=== PATIENT | female | born 1965 | race Caucasian/White ===

== ENCOUNTER 2016-10-16 20:12 | Emergency (ER) | payer MEDICAID ==
[~2016-10-16] VITALS: Ht 152.4 cm; Wt 69.0 kg
[~2016-10-16 20:12] MED LIST: CYCL-319 PO; HYDR-3498 PO; NAPR-260 PO
[2016-10-16 20:25] VITALS: Ht 152.4 cm; Wt 69.0 kg
--- NOTE | 2016-10-16 21:25 | ERA ---
ER Documentation Chief Complaint Date/Time DATE: 10/16/16 TIME: 21:25 Chief Complaint left knee injury with visible deformities HPI The patient is a 51-year-old female, presenting to the ER because of left knee pain after she had a mechanical fall around 6:30 PM. The pain is 10/10, worse with movement. She denies any other injury, denies headache, neck pain, chest pain, abdominal pain, vomiting, dysuria, diarrhea. Last meal was 6:30 PM. She does not smoke or drink Past medical history: Diabetes mellitus, dyslipidemia Past surgical history: None ROS All systems reviewed and are negative except as per history of present illness. Medications Home Meds Active Scripts Hydrocodone/Acetaminophen (Bernard 10-325 Tablet) 1 Each Tablet, 1 TAB PO Q6H Y for PAIN, #7 TAB Prov:JONNY ALMAGUER MD 10/17/16 Ibuprofen* (Motrin*) 600 Mg Tab, 600 MG PO Q6H Y for PAIN AND OR ELEVATED TEMP, #30 TAB Prov:JONNY ALMAGUER MD 10/17/16 Cyclobenzaprine Hcl* (Cyclobenzaprine Hcl*) 10 Mg Tablet, 10 MG PO TID, #15 TAB Prov:JAQUELINE FRASER PA-C 02/22/16 Naproxen* (Naprosyn*) 500 Mg Tablet, 500 MG PO BID Y for PAIN AND/OR INFLAMMATION, #30 TAB Prov:JAQUELINE FRASER PA-C 02/22/16 Hydrocodone Bit-Acetaminophen* (Bernard*) 5-325 Mg Tab, 1 TAB PO Q6 Y for PAIN, # 7 TAB Prov:JAQUELINE FRASER PA-C 02/22/16 Allergies Allergies: Coded Allergies: No Known Drug Allergies (Verified Allergy, Unknown, 04/13/08) PMhx/Soc History of Surgery: No Anesthesia Reaction: No Hx Neurological Disorder: No Hx Respiratory Disorders: No Hx Cardiac Disorders: No Hx Psychiatric Problems: No Hx Miscellaneous Medical Probl: Yes (DM, HIGH CHOLESTEROL ) Hx Alcohol Use: No Hx Substance Use: No Hx Tobacco Use: No Smoking Status: Never smoker Physical Exam Vitals Vital Signs Date Time Temp Pulse Resp B/P Pulse Ox O2 Delivery O2 Flow Rate FiO2 10/16/16 23:01 81 20 121/58 98 Room Air 10/16/16 22:00 101 23 142/73 98 Room Air 10/16/16 21:00 89 16 127/74 97 Room Air 10/16/16 20:50 89 15 140/74 97 Room Air 10/16/16 20:25 98.5 86 20 150/70 98 Physical Exam Const: No acute distress. Head: Atraumatic. Eyes: Normal Conjunctiva. ENT: Normal External Ears, Nose and Mouth. Neck: Full range of motion. No meningismus. Resp: Clear to auscultation bilaterally. Cardio: Regular rate and rhythm, no murmurs. Abd: Soft, non distended, normal bowel sounds, non tender. Skin: No petechiae or rashes. Back: No midline or flank tenderness. Ext: Left knee with patella tenderness, edema, ecchymosis, no laceration, no calf tenderness. Palpable posterior tibialis and pedal dorsalis Neur: Awake and alert. No focal deficit Psych: Normal Mood and Affect. Result Diagram: 10/16/16 2100 10/16/16 2100 Results 24 hrs Laboratory Tests Test 10/16/16 21:00 10/16/16 23:51 White Blood Count 8.410^3/ul Red Blood Count 5.1410^6/ul Hemoglobin 14.8g/dl Hematocrit 43.7% Mean Corpuscular Volume 85.0fl Mean Corpuscular Hemoglobin 28.8pg Mean Corpuscular Hemoglobin Concent 33.9g/dl Red Cell Distribution Width 12.6% Platelet Count 10486^3/UL Mean Platelet Volume 11.6fl Neutrophils % 74.1% Lymphocytes % 18.2% Monocytes % 5.7% Eosinophils % 1.1% Basophils % 0.2% Nucleated Red Blood Cells % 0.0/100WBC Neutrophils # 6.210^3/ul Lymphocytes # 1.510^3/ul Monocytes # 0.510^3/ul Eosinophils # 0.110^3/ul Basophils # 0.010^3/ul Nucleated Red Blood Cells # 0.010^3/ul Prothrombin Time 12.1Sec Prothrombin Time Ratio 0.9 INR International Normalized Ratio 0.90 Activated Partial Thromboplast Time 29.0Sec Sodium Level 136mmol/L Potassium Level 4.2mmol/L Chloride Level 96mmol/L Carbon Dioxide Level 27mmol/L Anion Gap 17 Blood Urea Nitrogen 14mg/dl Creatinine 0.39mg/dl Glucose Level 418mg/dl Calcium Level 9.6mg/dl Bedside Glucose 349mg/dL Current Medications Medications (Trade) Dose Ordered Sig/Ervin Route PRN Reason Start Time Stop Time Status Last Admin Dose Admin Morphine Sulfate (morphine) 4 mg ONCE STAT IV 10/16/16 21:37 10/16/16 21:40 DC 10/16/16 21:47 Ondansetron HCl 4 mg 4 mg ONCE STAT IV 10/16/16 21:37 10/16/16 21:40 DC 10/16/16 21:47 Sodium Chloride 1,000 ml @ 1,000 mls/hr Q1H ONCE IV 10/16/16 22:00 10/16/16 22:59 DC 10/16/16 21:48 Sodium Chloride (NS) 1,000 ml @ 1,000 mls/hr Q1H ONCE IV 10/16/16 23:00 10/16/16 23:59 DC 10/16/16 23:51 Insulin Human Lispro (Humalog) 10 unit ONCE ONCE SC 10/16/16 22:36 10/16/16 23:00 DC Procedures/[place] [id number] Radiology Main Line: [phone] DIAGNOSTIC IMAGING REPORT Patient: BERYL TORRE : 1965 Age: 51 Sex: F MR #: [id number] DOS: 10/16/16 2137 Ordering MD: JONNY ALMAGUER MD Location: [facility] Room/Bed: PROCEDURE: LEFT KNEE - 3 VIEWS CLINICAL INDICATION: 51-year-old female with left-sided knee pain. TECHNIQUE: AP, cross-table lateral and oblique view of the left knee were obtained. The images reviewed on a PACS workstation. COMPARISON: None. FINDINGS: There is a transverse mid patellar fracture with displacement of approximately 13 mm. There is prepatellar soft tissue swelling. There is a joint effusion identified. There is no evidence for dislocation. The bone marrow mineralization is within normal limits. IMPRESSION: Transverse displaced mid patellar fracture. .Jefferson Maria MD, MD Date Time Electronically viewed and signed by .Jefferson Maria MD, MD on 10/17/2016 00:13 .M/ CC: JONNY ALMAGUER MD MEDICAL MAKING DECISION: The patient is a 51-year-old female, presenting with acute left patella fracture, acute diabetic hyperglycemia. She was treated with morphine 4 mg IV for pain, Zofran 4 mg IV for nausea, 2 L normal saline, 10 units of Humalog subcutaneously for acute diabetic hyperglycemia with good response. She was treated with left knee immobilizer and crutches. Post immobilizer neurovascular is intact The differential diagnoses considered include but are not limited to fracture, internal derangement, HHS, DKA, medical noncompliance, dehydration Departure Diagnosis: Primary Impression: Patellar sleeve fracture of left knee Additional Impression: Diabetes mellitus with hyperglycemia Condition: Good Comments She was discharged with Motrin, Bernard I discussed the findings with the patient. I advised the patient to follow-up with the on-call orthopedist Dr Hodge in about 1-2 days, sooner if needed and return if any concern. The patient's blood pressure was elevated (>120/80) but appears stable without evidence of hypertension emergency or urgency. The patient was counseled about the risks of hypertension and urged to pursue outpatient monitoring and therapy within a week with their primary care physician. JONNY ALMAGUER MD Oct 16, 2016 21:25
[2016-10-16] MEDS ORDERED: morphine 4 MG/ML VIAL IV STA (21:37)
[2016-10-16] MEDS ORDERED: ONDANSETRON 4 MG INJ IV STA (21:37)
[2016-10-16] MEDS ORDERED: SOD CHLORIDE 0.9% 1,000 ML IV ONE ×2 (22:00→23:00)
[2016-10-16 22:08] LABS: ADD SCAN DIFF NO
[2016-10-16 22:10] LABS: BASOPHILS % 0.2 % (0.0-2.0); EOSINOPHILS # 0.1 10^3/ul (0.0-0.5); EOSINOPHILS % 1.1 % (0.0-7.0); HEMATOCRIT 43.7 % (37.0-47.0); HEMOGLOBIN 14.8 g/dl (12.0-16.0); LYMPHOCYTES # 1.5 10^3/ul (0.8-2.9); LYMPHOCYTES % 18.2 % (15.0-51.0); MEAN CORPUSCULAR HEMOGLOBIN 28.8 pg (29.0-33.0); MEAN CORPUSCULAR HGB CONC 33.9 g/dl (32.0-37.0); MEAN PLATELET VOLUME 11.6 fl (7.4-10.4); MONOCYTE # 0.5 10^3/ul (0.3-0.9); MONOCYTES % 5.7 % (0.0-11.0); NEUTROPHIL # 6.2 10^3/ul (1.6-7.5); NEUTROPHILS % 74.1 % (39.0-77.0); PLATELET COUNT 231 10^3/UL (140-415); RED BLOOD COUNT 5.14 10^6/ul (4.20-5.40); RED CELL DISTRIBUTION WIDTH 12.6 % (11.5-14.5); WHITE BLOOD COUNT 8.4 10^3/ul (4.8-10.8)
[2016-10-16 22:23] LABS: POTASSIUM 4.2 mmol/L (3.5-5.1)
[2016-10-16 22:24] LABS: INR 0.9; PROTIME 12.1 Sec (12.2-14.2); PT RATIO 0.9
[2016-10-16 22:25] LABS: CREATININE 0.39 mg/dl (0.44-1.00)
[2016-10-16 22:26] LABS: CALCIUM 9.6 mg/dl (8.4-10.2)
[2016-10-16] MEDS ORDERED: INSULIN LISPRO 100 UNIT/ML VIAL SC ONE (22:36)
--- NOTE | 2016-10-17 00:13 | RADRPT ---
PROCEDURE: LEFT KNEE - 3 VIEWS CLINICAL INDICATION: 51-year-old female with left-sided knee pain. TECHNIQUE: AP, cross-table lateral and oblique view of the left knee were obtained. The images rev iewed on a PACS workstation. COMPARISON: None. FINDINGS: There is a transverse mid patellar fracture with displacement of approximately 13 mm. There is prep atellar soft tissue swelling. There is a joint effusion identified. There is no evidence for dislo cation. The bone marrow mineralization is within normal limits. IMPRESSION: Transverse displaced mid patellar fracture. .Jefferson Maria MD, MD Date Time Electronically viewed and signed by .Jefferson Maria MD, MD on 10/17/2016 00:13 .Tana/
[2016-10-17] MEDS ORDERED: IBUP-1542 PO (00:22)
[2016-10-17] MEDS ORDERED: HYDR-902 PO (00:22)
[2016-10-17 01:07] VITALS: BP 129/65; PULSE 77; RESP 13
== END 2016-10-17 01:28 | disposition home or self-care (01) ==
LOC: FTE 20:12
DX: S82.032A Displaced transverse fracture of left patella, initial encounter for closed fracture (principal); E11.65 Type 2 diabetes mellitus with hyperglycemia; M25.562 Pain in left knee; W18.39XA Other fall on same level, initial encounter; Y92.9 Unspecified place or not applicable
CPT/HCPCS: 29505; 36415; 73562; 80048; 82962; 85025; 85610; 85730; 96372; 96374; 96375; J1815; J2270; J2405; J7030; Z7502; Z7610

== ENCOUNTER 2018-07-01 19:49 | Emergency (ER) | payer MEDICAID ==
[~2018-07-01] VITALS: Ht 167.6 cm; Wt 71.6 kg
[~2018-07-01 19:49] MED LIST changes: -CYCL-319 PO; +CYCL10TA7 PO; +HYDR-3980 PO; +IBUP-1542 PO; -NAPR-260 PO; +NAPR-985 PO
[2018-07-01 19:53] VITALS: Ht 167.6 cm; Wt 71.6 kg
--- NOTE | 2018-07-01 22:52 | ERD ---
ER Documentation Chief Complaint Chief Complaint vaginal pain/swelling x 4 days HPI This is a 53-year-old female who presents here in the emergency department with complaints of vaginal pain and swelling for about 4 days. LMP: Stated that she is on it. . Denies headache, head injury, loss of consciousness, dizziness, neck pain, neck stiffness, throat pain, difficulty swallowing, difficulty breathing lying flat, shoulder pain, chest pain, back pain, abdominal pain, nausea, vomiting, constipation, diarrhea, urinary symptoms, or possibility being pr egnant, loss of bowel and bladder control, trauma, injury, falls, difficulty walking due to pain, numbness or tingling sensation, calf pain, recent travel, recent major surgery in the last 3 weeks, calf pain, recent long travel, recent exposure to any illness, recent antibiotic use in the last 3 months, fever, chills, seizures. Past medical history: Denies. Surgical history: Denies. Social: Denies smoking, use of alcoholic beverages, use of illegal drugs. ROS All systems reviewed and are negative except as per history of present illness. Medications Home Meds Active Scripts Ibuprofen* (Motrin*) 800 Mg Tab, 800 MG PO Q6H PRN for PAIN AND OR ELEVATED TEMP, #30 TAB Prov:LEIDAILAALLAN BAUTISTAAR F 07/02/18 Hydrocodone/Acetaminophen (Mcpherson 10-325 Tablet) 1 Each Tablet, 1 TAB PO Q6H PRN for PAIN LEVEL 6-10, #15 TAB Prov:PASILABANALLANAR F 07/02/18 Sulfamethoxazole/Trimethoprim* (Bactrim Ds* Tablet) 1 Each Tablet, 1 TAB PO BID for 7 Days, #14 TAB Prov:PASILALETY BAUTISTA F 07/02/18 Cephalexin* (Keflex*) 500 Mg Capsule, 500 MG PO TID for 7 Days, CAP Prov:PASILABAN,ALLANAR F 07/02/18 Hydrocodone/Acetaminophen (Mcpherson 10-325 Tablet) 1 Each Tablet, 1 TAB PO Q6H PRN for PAIN, #7 TAB Prov:JONNY ALMAGUER MD 10/17/16 Ibuprofen* (Motrin*) 600 Mg Tab, 600 MG PO Q6H PRN for PAIN AND OR ELEVATED TEMP, #30 TAB Prov:JONNY ALMAGUER MD 10/17/16 Cyclobenzaprine Hcl* (Cyclobenzaprine Hcl*) 10 Mg Tablet, 10 MG PO TID, #15 TAB Prov:JAQUELINE FRASER PA-C 02/22/16 Naproxen* (Naprosyn*) 500 Mg Tablet, 500 MG PO BID PRN for PAIN AND/OR INFLAMMATION, #30 TAB Prov:JAQUELINE FRASER PA-C 02/22/16 Hydrocodone Bit-Acetaminophen* (Mcpherson*) 5-325 Mg Tab, 1 TAB PO Q6 PRN for PAIN, #7 TAB Prov:JAQUELINE FRASER PA-C 02/22/16 Allergies Allergies: Coded Allergies: No Known Drug Allergies (Verified Allergy, Unknown, 07/01/18) PMhx/Soc Medical and Surgical Hx: pt denies Surgical Hx History of Surgery: No Anesthesia Reaction: No Hx Neurological Disorder: No Hx Respiratory Disorders: No Hx Cardiac Disorders: No Hx Psychiatric Problems: No Hx Miscellaneous Medical Probl: Yes (DM, HIGH CHOLESTEROL ) Hx Alcohol Use: No Hx Substance Use: No Hx Tobacco Use: No Smoking Status: Never smoker Physical Exam Vitals Vital Signs Date Temp Pulse Resp B/P (MAP) Pulse Ox O2 O2 Flow FiO2 Time Delivery Rate 07/02/18 98.0 81 18 155/70 98 Room Air 02:17 (98) 07/01/18 98.0 87 18 156/67 98 19:53 (96) Physical Exam Examined with female user experience developer, Britni ABARCA. Const: No acute distress Head: Atraumatic Eyes: Normal Conjunctiva ENT: Normal External Ears, Nose and Mouth. Neck: Full range of motion. No meningismus. Resp: Clear to auscultation bilaterally Cardio: Regular rate and rhythm, no murmurs Abd: Soft, non tender, non distended. Normal bowel sounds. : Equal hair distribution. Left side of the mons pubis has swelling and redness and has fluctuance. No vaginal discharge. No bleeding. Skin: No petechiae or rashes Back: No midline or flank tenderness. No CVA tenderness. Ext: No cyanosis, or edema Neur: Awake and alert. No neurological deficits. Psych: Normal Mood and Affect Results 24 hrs Laboratory Tests Test 07/01/18 22:33 07/01/18 22:42 Urine Color YELLOW Urine Clarity CLEAR Urine pH 6.0 Urine Specific [place] 1.036 Urine Ketones NEGATIVE mg/dL Urine Nitrite NEGATIVE mg/dL Urine Bilirubin NEGATIVE mg/dL Urine Urobilinogen NEGATIVE mg/dL Urine Leukocyte Esterase NEGATIVE Aniya/ul Urine Hemoglobin NEGATIVE mg/dL Urine Glucose 3+ mg/dL Urine Total Protein NEGATIVE mg/dl POC Beta HCG, Qualitative NEGATIVE Current Medications Medications Dose Sig/Ervin Start Time Status Last (Trade) Ordered Route PRN Stop Time Admin Dose Reason Admin Lidocaine 20 ml ONCE ONCE 07/02/18 DC (Xylocaine SC 00:30 1% (Mdv) 20 07/02/18 ml) 00:31 Morphine 4 mg ONCE STAT 07/02/18 DC 07/02/18 Sulfate IM 00:02 00:26 (morphine) 07/02/18 00:04 Procedures/MDM Diagnostic tests: POC urine : Negative. Urinalysis: Reviewed. Culture urine: Sent. Ultrasound of the soft tissue/suprapubic area to rule out abscess: Findings compatible with a 1 cm subcutaneous abscess at the point of interest. This case was discussed with my supervising physician, Dr. Ana Brown who agreed with my medical decision making. Verbal consent was obtained. Procedure: Incision and drainage of abscess to the left side of mons pubis: Sterile technique was observed. Betadine prep. Lidocaine 1% 4 cc subcu. Incision and drainage done. Drained copious amount of mucopurulent discharge/drainage. Packed with iodoform. Treatment: Morphine IM. Dressing was applied by EMT. Re-evaluation: No active bleeding. Differential diagnosis I have low suspicion for sepsis, deep space infection. Final diagnosis: Abscess with incision and drainage. Prescription: Bactrim. Keflex. Mcpherson. Motrin p.o. Follow-up with PCP in the next 24-48 hours. Come back in 2 days for wound check and possible removal of packing and REPACKING. Come back here in the emergency department for any new symptoms or any worsening symptoms. All questions and concerns were answered. Patient and family members verbalized understanding and agreed with plan of care. Hemodynamically stable on discharge. Departure Diagnosis: Primary Impression: Abscess Additional Impression: Incisional abscess Condition: Stable Additional Instructions: Follow-up with PCP in the next 24-48 hours. Come back in 2 days for wound check and possible removal of packing and REPACKING. Come back here in the emergency department for any new symptoms or any worsening symptoms. LETY TANNER 20, 2018 22:52
[2018-07-02] MEDS ORDERED: morphine 4 MG/ML VIAL IM STA (00:02)
[2018-07-02] MEDS ORDERED: LIDOCAINE 1% (MDV) 20 ML INJ SC ONE (00:30)
[2018-07-02] MEDS ORDERED: SULF1TAB31 PO (01:22)
[2018-07-02] MEDS ORDERED: CEPH-443 PO (01:22)
[2018-07-02] MEDS ORDERED: IBUP800T48 PO (01:23)
[2018-07-02] MEDS ORDERED: HYDR-3980 PO (01:23)
[2018-07-02 02:17] VITALS: BP 155/70; PULSE 81; RESP 18
== END 2018-07-02 02:19 | disposition home or self-care (01) ==
LOC: FTE 19:49
DX: L02.215 Cutaneous abscess of perineum (principal); E11.9 Type 2 diabetes mellitus without complications
CPT/HCPCS: 56405; 76536; 81003; 81025; 87086; J2270; Z7610; 96372

== ENCOUNTER 2018-07-03 14:39 | Emergency (ER) | END 2018-07-03 17:00 | disposition home or self-care (01) ==

== ENCOUNTER 2018-07-05 10:57 | Emergency (ER) | END 2018-07-05 11:49 | disposition home or self-care (01) ==